=== PATIENT | male | born 1965 | race African-American/Black ===

== ENCOUNTER 2016-05-12 18:55 | Emergency (ER) | payer BC ==
[~2016-05-12] VITALS: Ht 180.3 cm; Wt 113.4 kg
[2016-05-12 19:01] VITALS: BP 141/98
[2016-05-12] MEDS ORDERED: BUSPIRONE HCL10 MG PO (19:05)
[2016-05-12] MEDS ORDERED: VALIUM10 MG PO (19:06)
[2016-05-12] MEDS ORDERED: VISTARIL 25 MG25 M1 PO (19:40)
== END 2016-05-12 19:50 | disposition home or self-care (01) ==
LOC: ER 18:55
DX: F41.9 Anxiety disorder, unspecified (principal); D57.3 Sickle-cell trait; F17.210 Nicotine dependence, cigarettes, uncomplicated; Z76.0 Encounter for issue of repeat prescription